=== PATIENT | female | born 1945 | race Caucasian/White ===

== ENCOUNTER → 2019-05-10 08:38 | Outpatient (CLI) | payer MEDICARE, SELFPAY ==
--- NOTE | 2019-05-10 08:45 | DI.MG.S_ITS ---
BILATERAL DIGITAL SCREENING MAMMOGRAM 3D/2D WITH CAD: 05/10/2019 CLINICAL: Routine screening. Family history of breast cancer. Comparison is made to exams dated: 02/06/2013 mammogram and 01/16/2013 mammogram - [facility]. There are scattered fibroglandular elements in both breasts. Current study was also evaluated with a Computer Aided Detection (CAD) system. There are grouped calcifications in the right breast superior lateral quadrant anterior depth. There also is an oval mass with a circumscribed margin in the right breast inferior medial quadrant anterior depth. There are multiple bilateral circular mole markers. No other significant masses, calcifications, or other findings are seen in either breast. IMPRESSION: INCOMPLETE: NEEDS ADDITIONAL IMAGING EVALUATION 1) The grouped calcifications in the right breast superior lateral quadrant anterior depth are indeterminate. Magnification views as well as additional views with possible ultrasound are recommended. 2) The oval mass in the right breast inferior medial quadrant anterior depth is indeterminate. Additional views with possible ultrasound are recommended. This exam was interpreted at Station ID: [id number]. NOTE: For mammograms, a report in lay terms will be sent to the patient. Approximately 15% of breast malignancies will not be visualized mammographically. In the management of a palpable breast mass, a negative mammogram must not discourage biopsy of a clinically suspicious lesion. Electronically Signed By: Robles Monson M.D. ecl/:05/10/2019 14:25:39 letter sent: Additional Imaging Needed ACR BI-RADS Category 0: Incomplete [id number]
== END ==
PROVIDERS: PCP Nurse Practitioner Family; Visit Provider Nurse Practitioner Family
DX: Z12.31 Encounter for screening mammogram for malignant neoplasm of breast (principal); Z80.3 Family history of malignant neoplasm of breast
CPT/HCPCS: 77063; 77067

== ENCOUNTER → 2019-05-31 13:41 | Outpatient (CLI) | payer MEDICARE, SELFPAY ==
--- NOTE | 2019-05-31 | DI.MG.S_ITS ---
UNILATERAL RIGHT DIGITAL DIAGNOSTIC MAMMOGRAM 3D/2D WITH ADDITIONAL VIEWS: 05/31/2019 CLINICAL: Additional evaluation requested from prior study. Comparison is made to exams dated: 05/10/2019 mammogram - [facility], 02/06/2013 mammogram, and 01/16/2013 mammogram - [facility]. There are scattered fibroglandular elements in right breast. There are a grouped coarse heterogeneous calcifications in the right breast superior lateral quadrant anterior depth. They appear to be confined within a possible mass. There also is 0.7 cm oval mass with a circumscribed margin in the right breast central to the nipple anterior depth. This is not significantly changed. No other significant masses or calcifications are seen in the breast. IMPRESSION: INCOMPLETE: NEEDS ADDITIONAL IMAGING EVALUATION The grouped coarse heterogeneous calcifications in the right breast superior lateral quadrant anterior depth appear to be associated with a mass and remain indeterminate. An ultrasound is recommended. The 0.7 cm oval mass in the right breast central to the nipple anterior depth is indeterminate. An ultrasound is recommended. The recommended ultrasounds are scheduled to immediately follow this study. This exam was interpreted at Station ID: [id number]. NOTE: For mammograms, a report in lay terms will be sent to the patient. Approximately 15% of breast malignancies will not be visualized mammographically. In the management of a palpable breast mass, a negative mammogram must not discourage biopsy of a clinically suspicious lesion. Electronically Signed By: Anjel Pink M.D. aty/:05/31/2019 14:32:19 ACR BI-RADS Category 0: Incomplete [id number]
--- NOTE | 2019-05-31 | DI.US.S_ITS ---
ULTRASOUND OF RIGHT BREAST AND AXILLA: 05/31/2019 CLINICAL: Patient returns today to evaluate an architectural distortion in the right breast. Comparison is made to exams dated: 05/31/2019 mammogram, 05/10/2019 mammogram - [facility], 02/06/2013 mammogram, and 01/16/2013 mammogram - [facility]. Color flow and real-time ultrasound of the right breast were performed. Levy scale images of the real-time examination were reviewed. There is 1.2 cm x 0.7 cm x 0.6 cm wider than tall oval mass in the right breast at 9 o'clock anterior depth 1 cm from the nipple. This oval mass is hypoechoic. There are related micro calcifications. Color flow imaging demonstrates that there is no vascularity present. This correlates with mammographic findings. There also is benign duct ectasia in the right breast central to the nipple anterior depth. This duct ectasia displays no posterior acoustic shadowing or enhancement. It appears simple internally without solid components or debris. Color flow imaging demonstrates that there is no vascularity present. This corresponds with retroareolar asymmetry seen on mammography. No abnormalities noted in the right axilla. IMPRESSION: SUSPICIOUS OF MALIGNANCY The 1.2 cm x 0.7 cm x 0.6 cm wider than tall oval mass in the right breast at 9 o'clock anterior depth is suspicious of malignancy. An ultrasound guided biopsy is recommended. The duct ectasia in the right breast central to the nipple anterior depth is consistent with duct ectasia and is benign. Findings and recommendations were discussed with the patient by Dr. Villa. This exam was interpreted at Station ID: [id number]. Electronically Signed By: Anjel Pink M.D. aty/:06/01/2019 15:47:41 letter sent: Biopsy Required Ultrasound BI-RADS: 4 Suspicious abnormality
== END ==
PROVIDERS: PCP Nurse Practitioner Family; Visit Provider Nurse Practitioner Family
DX: R92.8 Other abnormal and inconclusive findings on diagnostic imaging of breast (principal); R92.1 Mammographic calcification found on diagnostic imaging of breast; N63.10 Unspecified lump in the right breast, unspecified quadrant; N60.41 Mammary duct ectasia of right breast
CPT/HCPCS: 76642; 77065; G0279

== ENCOUNTER → 2019-07-05 13:35 | Outpatient (CLI) | payer MEDICARE, SELFPAY ==
--- NOTE | 2019-07-05 | DI.US.S_ITS ---
ULTRASOUND GUIDED BIOPSY RIGHT BREAST USING VACUUM DEVICE WITH MARKING DEVICE INSERTED: 07/05/2019 CLINICAL: Rt breast mass bx. PATIENT CONSENT: Risks (minor bleeding, infection, vasovagal reaction and repeat procedure), benefits and alternatives were explained to the patient and written informed consent was obtained. Correlation is made to exams dated: 07/05/2019 mammogram, 05/31/2019 ultrasound, 05/31/2019 mammogram, 05/10/2019 mammogram - [facility], 02/06/2013 mammogram, and 01/16/2013 mammogram - [facility]. An ultrasound guided biopsy using real-time ultrasound was performed for the 1.2 cm x 0.7 cm x 0.6 cm mass located in the right breast at 9 o'clock anterior depth 1 cm from the nipple. The skin was prepped in the usual manner. Local anesthetic was administered to the access site. A skin tomasz was made in the breast. The abnormality was approached from the lateral aspect. A biopsy needle was placed adjacent to the abnormality under ultrasound guidance. Once the needle was documented to be in the correct location, five specimens were obtained using the Mammotome biopsy system. The patient received additional local anesthetic during the procedure. A clip was inserted into the biopsy cavity. A skin adhesive was applied to the access site. Post procedure imaging demonstrates the location device at the targeted area. The specimens were sent to the laboratory for pathological analysis. IMPRESSION: ULTRASOUND GUIDED BIOPSY BENIGN Ultrasound guided biopsy of the 1.2 cm x 0.7 cm x 0.6 cm mass in the right breast at 9 o'clock anterior depth 1 cm from the nipple was successful with no apparent post procedure complications. Pathology indicates benign breast tissue with fibrocystic changes (FC) and regions of chronic inflammation. 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 No malignancy. Pathology results are concordant with mammography and ultrasound findings. Return to screening mammography recommended. This exam was interpreted at Station ID: [id number]. Torey Rojas M.D. [facility] [facility] [place]:07/09/2019 19:47:29
--- NOTE | 2019-07-05 | DI.MG.S_ITS ---
UNILATERAL RIGHT DIGITAL DIAGNOSTIC MAMMOGRAM POST-EXCISIONAL BIOPSY: 07/05/2019 CLINICAL: Right breast mass. Comparison is made to exams dated: 05/31/2019 mammogram, 05/10/2019 mammogram - [facility], 02/06/2013 mammogram - [facility], and 05/31/2019 ultrasound - [facility]. There are scattered fibroglandular elements in right breast. There is a marker clip in the appropriate position in the right breast central to the nipple anterior depth. This marker clip placement is at the calcifications at the biopsy site. This correlates with prior mammogram. IMPRESSION: POST PROCEDURE MAMMOGRAM FOR MARKER PLACEMENT Marker clip placement in the right breast central to the nipple anterior depth is in the expected position at the biopsy site. This exam was interpreted at Station ID: [id number]. NOTE: For mammograms, a report in lay terms will be sent to the patient. Approximately 15% of breast malignancies will not be visualized mammographically. In the management of a palpable breast mass, a negative mammogram must not discourage biopsy of a clinically suspicious lesion. Electronically Signed By: Torey Bella M.D. slc/:07/05/2019 15:42:35 ACR BI-RADS Category Post-procedure mammogram for marker placement
--- NOTE | 2019-07-05 | PATH_ITS ---
[facility] Accession Number: [id number] . 01 Material submitted: . breast - RIGHT BREAST MASS . 01 Clinical history: . 9:00 1 CM FN 5 PASSES . 02 Diagnosis: Right Breast Mass, 9 o'clock, 1 cm from Nipple, Image Guided Needle Core Biopsy: Benign breast parenchyma with features of fibrocystic change and patchy regions of chronic inflammation. Cyst stein are fibrotic and focally calcified No epithelial atypia or malignancy identified. No mass identified. Please see comment. MRV/07/06/2019 . 02 Comment: There is no histologic evidence of a mass. Please correlate these findings with clinical and imaging studies. . Multiple attempts to reach REGGIE Matamoros, at multiple phone numbers have been unsuccessful (07-06-19 as of 3:00 p.m.) . 02 Electronically signed: . Kathleen Pal MD, Pathologist NPI- [id number] . 01 Gross description: . . Received one formalin-filled container labeled with the patient's name and designated right breast mass 9 o'clock, 1 cm FN, 5 passes. The specimen is received with plastic filter in container, sample loose in container, and consists of multiple 0.2-0.3 cm cylindrical-shaped fragments of tissue which range in length from 0.2 cm to 1.2 cm. The specimen is filtered, wrapped, and entirely submitted in one cassette. Collection date: 07/05/2019. Possible collection time: 15:28. Total fixation time: 12 hours, up to 24. ([id number]) /FRR . 02 Pathologist provided ICD-10: N63.10 . 02 CPT . 609455 Performed at: [address], [place] [id number] MD Scooby Mckinley MD Phone: [phone] Performed at: 02 [facility] [place] [id number] [place] [id number] MD Mary Marie MD Phone: [phone]
== END ==
PROVIDERS: Visit Provider Nurse Practitioner Family
DX: N63.10 Unspecified lump in the right breast, unspecified quadrant (principal)
CPT/HCPCS: 19083; 77065; 88305